=== PATIENT | male | born 1950 | race African-American/Black ===

== ENCOUNTER 2017-08-29 22:55 | Inpatient (IN) ==
[2017-08-30] MEDS ORDERED: SODIUM CHLORIDE 0.9% 500 ML IV STA (00:29)
[2017-08-30 01:35] LABS: Basophils % 0.2 % (0.0-0.8); Hematocrit 44.3 VOL% (42.0-52.0); Hemoglobin 14.7 GM/DL (14.0-18.0); Immature Granulocytes % 0.2 %; Immature Granulocytes Absolute 0.01 #; Lymphocytes # 0.4 10*3/uL (1.4-4.0); Lymphocytes % 7.6 % (21.2-54.2); Mean Corpuscular HGB Conc 33.2 GM/DL (32-36); Mean Corpuscular Hemoglobin 31 PG (27-34); Mean Corpuscular Volume 93.5 FL (87-102); Mean Platelet Volume 10.4 FL (9.6-12.0); Monocytes # 0.3 10*3/uL (0.11-0.8); Monocytes % 6.4 % (1.7-12.7); Neutrophils # 4.2 10*3/uL (1.4-7.4); Neutrophils % 85.6 % (38.7-73.9); Platelet Count 221 T/CUMM (130-400); Red Blood Count 4.74 MC/CUMM (3.8-5.5); Red Cell Distribution Width 13.6 % (9.3-17.3); White Blood Count 4.9 T/CUMM (4-12)
[2017-08-30 02:02] LABS: Alanine Aminotransferase 36 U/L (16-61); Albumin 3.7 G/DL (3.4-5.0); Alkaline Phosphatase 67 U/L (45-117); Aspartate Amino Transferase 30 U/L (0-37); Blood Urea Nitrogen 22 MG/DL (7-18); Calcium 8.3 MG/DL (8.5-10.1); Glucose 125 MG/DL (74-106); Sodium 136 MMOL/L (136-145); Total Protein 7.9 G/DL (6.4-8.3); Troponin I Only < 0.015 NG/ML (0.00-0.045)
[2017-08-30 02:16] LABS: Apearance,Urine Slightly Hazy (Clear); Bilirubin,Urine Negative (Negative); Blood, Urine Negative (Negative); Glucose,Urine (UA) Negative (Negative); Hyaline Casts,Urine 4 /LPF (0-3); Ketones,Urine Negative (Negative); Mucus,Urine Moderate /LPF (Occasional); Nitrite,Urine Negative (Negative); Protein,Urine 30 MG/DL; RBC,Urine 2 /HPF (0-4); Urine Color Yellow (Yellow); Urine Specific Gravity 1.025 (1.001-1.035); Urine Urobilinogen < 2.0 EU/DL (0.2-1.0); WBC,Urine 1 /HPF (0-6)
[2017-08-30] MEDS ORDERED: ONDANSETRON 4 MG/2 ML VIAL IV PRN (03:13)
[2017-08-30] MEDS ORDERED: ACETAMINOPHEN 325 MG TABLET PO PRN (03:13)
[2017-08-30] MEDS ORDERED: ZALEPLON 5 MG CAPSULE PO PRN (03:13)
[2017-08-30] MEDS: SODIUM CHLORIDE 0.9% 1,000 ML IV SCH ×2 (05:54→16:01)
[2017-08-30 08:04] LABS: Hematocrit 42.7 VOL% (42.0-52.0); Hemoglobin 14.6 GM/DL (14.0-18.0); Immature Granulocytes % 0.2 %; Immature Granulocytes Absolute 0.01 #; Lymphocytes # 0.6 10*3/uL (1.4-4.0); Lymphocytes % 12.8 % (21.2-54.2); Mean Corpuscular HGB Conc 34.2 GM/DL (32-36); Mean Corpuscular Hemoglobin 31 PG (27-34); Mean Corpuscular Volume 90.7 FL (87-102); Mean Platelet Volume 10.2 FL (9.6-12.0); Monocytes # 0.5 10*3/uL (0.11-0.8); Monocytes % 12.1 % (1.7-12.7); Neutrophils # 3.2 10*3/uL (1.4-7.4); Neutrophils % 74.9 % (38.7-73.9); Platelet Count 207 T/CUMM (130-400); Red Blood Count 4.71 MC/CUMM (3.8-5.5); Red Cell Distribution Width 13.7 % (9.3-17.3); White Blood Count 4.3 T/CUMM (4-12)
[2017-08-30 08:37] LABS: Albumin 3.4 G/DL (3.4-5.0); Bilirubin,Total 0.4 MG/DL (0.2-1.0); Calcium 8.3 MG/DL (8.5-10.1); Osmolality,Calculated 277.7 MOS/KG (273-304); Potassium 3.9 MMOL/L (3.5-5.1); Total Protein 7.2 G/DL (6.4-8.3)
[2017-08-30] MEDS: PANTOPRAZOLE 40 MG TABLET PO SCH (09:32)
[2017-08-30] MEDS: ENOXAPARIN 40 MG/0.4 ML SYRINGE SUBCUT SCH (09:34)
[2017-08-30] MEDS: ASPIRIN EC 81 MG TABLET PO SCH (09:58)
[2017-08-30] MEDS ORDERED: METOPROLOL TARTRATE 25 MG TABLET PO SCH (10:00)
[2017-08-30 10:53] LABS: Risk Ratio 2.96; Thyroid Stimulating Hormone 0.726 uIU/ml (0.358-3.74); VLDL CHOLESTEROL 13.2 MG/DL
[2017-08-30] MEDS ORDERED: MAGNESIUM SULF RIDER 2 GM in PREMIX 1 EACH IV PRN (11:03)
[2017-08-30] MEDS ORDERED: MAGNESIUM SULF RIDER 4 GM in PREMIX 1 EACH IV PRN (11:03)
[2017-08-30] MEDS: amLODIPine 10 MG TABLET PO SCH (18:50)
[2017-08-30] MEDS: levETIRAcetam 500 MG TABLET PO SCH (21:03)
[2017-08-31 04:34] LABS: Basophils % 0.4 % (0.0-0.8); Eosinophils # 0.1 10*3/uL (0.0-0.87); Eosinophils % 0.9 % (0.00-10.9); Hematocrit 42.9 VOL% (42.0-52.0); Hemoglobin 14.3 GM/DL (14.0-18.0); Immature Granulocytes % 0.2 %; Immature Granulocytes Absolute 0.01 #; Lymphocytes # 1.4 10*3/uL (1.4-4.0); Lymphocytes % 25.5 % (21.2-54.2); Mean Corpuscular HGB Conc 33.3 GM/DL (32-36); Mean Corpuscular Hemoglobin 31 PG (27-34); Mean Corpuscular Volume 92.3 FL (87-102); Mean Platelet Volume 11.2 FL (9.6-12.0); Monocytes % 18.3 % (1.7-12.7); Neutrophils # 3.1 10*3/uL (1.4-7.4); Neutrophils % 54.7 % (38.7-73.9); Platelet Count 193 T/CUMM (130-400); Red Blood Count 4.65 MC/CUMM (3.8-5.5); Red Cell Distribution Width 13.6 % (9.3-17.3); White Blood Count 5.6 T/CUMM (4-12)
[2017-08-31 04:59] LABS: Band Neutrophils 6 % (0-10); Eosinophils 3 % (0-10); Lymphocytes 23 % (20-55); Segmented Neutrophils 59 % (50-85); Total Cells Counted 100
[2017-08-31 05:00] LABS: Hypochromasia 1+
[2017-08-31 05:01] LABS: Atypical Lymphocytes Few; Platelet Estimate Adequate
[2017-08-31 05:02] LABS: Calcium 8.1 MG/DL (8.5-10.1); Osmolality,Calculated 279.4 MOS/KG (273-304); Potassium 3.9 MMOL/L (3.5-5.1)
[2017-08-31] MEDS: SODIUM CHLORIDE 0.9% 1,000 ML IV SCH (06:00)
[2017-08-31] MEDS ORDERED: LABETALOL 20 MG/4 ML SYRINGE IV ONE (07:09)
[2017-08-31] MEDS: PANTOPRAZOLE 40 MG TABLET PO SCH (09:12)
[2017-08-31] MEDS: ASPIRIN EC 81 MG TABLET PO SCH (09:12)
[2017-08-31] MEDS: amLODIPine 10 MG TABLET PO SCH (09:12)
[2017-08-31] MEDS: ENOXAPARIN 40 MG/0.4 ML SYRINGE SUBCUT SCH (09:12)
[2017-08-31] MEDS: levETIRAcetam 500 MG TABLET PO SCH ×2 (09:12→20:50)
[2017-08-31] MEDS: LOSARTAN 50 MG TABLET PO SCH (09:12)
[2017-09-01 05:57] LABS: Basophils % 0.4 % (0.0-0.8); Eosinophils # 0.1 10*3/uL (0.0-0.87); Eosinophils % 2.6 % (0.00-10.9); Hematocrit 41.8 VOL% (42.0-52.0); Hemoglobin 13.8 GM/DL (14.0-18.0); Immature Granulocytes % 0.2 %; Immature Granulocytes Absolute 0.01 #; Lymphocytes # 1.7 10*3/uL (1.4-4.0); Lymphocytes % 35.8 % (21.2-54.2); Mean Corpuscular Hemoglobin 31 PG (27-34); Mean Corpuscular Volume 93.1 FL (87-102); Mean Platelet Volume 11.1 FL (9.6-12.0); Monocytes # 0.7 10*3/uL (0.11-0.8); Monocytes % 15.8 % (1.7-12.7); Neutrophils # 2.1 10*3/uL (1.4-7.4); Neutrophils % 45.2 % (38.7-73.9); Platelet Count 201 T/CUMM (130-400); Red Blood Count 4.49 MC/CUMM (3.8-5.5); Red Cell Distribution Width 13.6 % (9.3-17.3); White Blood Count 4.7 T/CUMM (4-12)
[2017-09-01 06:49] LABS: Osmolality,Calculated 279.3 MOS/KG (273-304); Potassium 3.3 MMOL/L (3.5-5.1)
[2017-09-01 06:53] LABS: Band Neutrophils 1 % (0-10); Eosinophils 3 % (0-10); Lymphocytes 33 % (20-55); Segmented Neutrophils 51 % (50-85); Total Cells Counted 100
[2017-09-01 06:54] LABS: Hypochromasia Slight; Microcytosis 1+
[2017-09-01 06:55] LABS: Platelet Estimate Normal
[2017-09-01 08:00] VITALS: BP 139/83
[2017-09-01] MEDS: PANTOPRAZOLE 40 MG TABLET PO SCH (09:11)
[2017-09-01] MEDS: LOSARTAN 50 MG TABLET PO SCH (09:11)
[2017-09-01] MEDS: levETIRAcetam 500 MG TABLET PO SCH (09:11)
[2017-09-01] MEDS: ASPIRIN EC 81 MG TABLET PO SCH (09:11)
[2017-09-01] MEDS: amLODIPine 10 MG TABLET PO SCH (09:11)
== END 2017-09-01 11:25 | disposition home or self-care (01) | DRG 57 ==
LOC: N.EDINP 22:55 → N.ED 22:55 → SUATTDRO 08-30 03:13 → N.3E 08-30 04:15 → N.ICU 08-30 05:20 → N.4E 08-31 13:12
PROVIDERS: ADMIT Internal Medicine; ATTEND Internal Medicine